=== PATIENT | male | born 1965 | race Caucasian/White ===

== ENCOUNTER → 2017-06-26 | Day surgery (SDC) | payer OTHER ==
[~2017-06-26] MED LIST: LIDOCAINE HCL 2% LOCAL INJ 5 ML SDV VIAL INJ ONE; MIDAZOLAM HCL 5MG/ML 2ML VIAL ONE; PROPOFOL IV EMULSION 10 MG/ML 50 ML VIAL ONE
--- NOTE | 2017-06-26 16:16 | Operative Report ---
DATE OF PROCEDURE: June 26, 2017 REFERRING PHYSICIAN: Dr. Maurisio Tafoya. PROCEDURES PERFORMED: Esophagogastroduodenoscopy with biopsies and dilatation and colonoscopy with polypectomy. INDICATIONS FOR EGD: Dysphagia, history of heartburn and indigestion. INDICATIONS FOR COLONOSCOPY: Colorectal cancer screening. MEDICATION: Patient was done under MAC. Please see anesthesiologist's note. PROCEDURE: With the patient in lateral decubitus position, a flexible fiberoptic Olympus gastroscope was introduced into the esophagus under direct visualization without any difficulty. Two inlet patches were noted in the cervical esophagus just below the upper esophageal sphincter and there were 2 nodules noted in the inlet patches and biopsies were obtained. The scope was then advanced with ease into the stomach. There was some patchy erythema noted in the distal esophagus. Also, there was an approximately 3 mm ulcer noted in the distal esophagus without active bleeding. There was a mild stricture noted at the GE junction that was dilated to size 52-Kittitian Galvan. The scope was then advanced with ease into the stomach. Mucosa overlying the antrum and the body revealed some patchy erythema and [id number] edema, and biopsies were obtained sent to stain for H. pylori. The pylorus was of normal contour and shape, was intubated with ease, and the scope was advanced all the way to the second portion of the duodenum. The scope was then withdrawn slowly. Mucosa overlying the proximal second portion and the duodenal bulb appeared to be within normal limits. The scope was then withdrawn back into the stomach and retroflexed. The mucosa overlying the fundus and cardia appeared to be within normal limits. The scope was then straightened out. The stomach was decompressed. The scope subsequently withdrawn. Patient tolerated the procedure well. IMPRESSION 1. Inlet patch. 2. Nodule in inlet patch biopsied. 3. Ulcer of distal esophagus without active bleeding. 4. Esophageal stricture at gastroesophageal junction, dilated to size 52-Kittitian Galvan. 5. Gastritis biopsied. Biopsies sent to stain for H. pylori. PLAN: Followup histology. Initiate Protonix 40 mg one p.o. q.a.m. a.c. The patient was then turned around. After adequate lubrication of the anal canal, flexible fiberoptic Olympus colonoscope was inserted into the rectum with ease and advanced all the way to the cecum. The scope was then withdrawn slowly. Mucosa overlying the cecum and ascending colon appeared to be within normal limits. One polyp was hot biopsied, one polyp was snared from the transverse colon. The descending sigmoid appeared to be within normal limits. One polyp was snared from the rectum. The scope was then retroflexed into the distal rectum and small internal hemorrhoids were noted, none of which was actively bleeding. The scope was then straightened out. The rectosigmoid area as well as the distal rectal area were decompressed. The scope was subsequently withdrawn. Patient tolerated the procedure well. IMPRESSION 1. Transverse colon polyps times 2, one snared and one hot biopsied. 2. Rectal polyp snared. 3. Internal hemorrhoids, none actively bleeding. PLAN: Followup histology. Initiate high-fiber, low-fat diet. Initiate high-fiber supplement. Patient will need a followup colonoscopy in 3 years. Job#: [id number] SAK cc:Dr. Maurisio Tafoya
== END | disposition home or self-care (01) ==
LOC: OR 07:32
PROVIDERS: ATTEND Internal Medicine Gastroenterology
DX: Z12.11 Encounter for screening for malignant neoplasm of colon (principal); D12.3 Benign neoplasm of transverse colon; K62.1 Rectal polyp; K29.70 Gastritis, unspecified, without bleeding; K22.2 Esophageal obstruction; K21.9 Gastro-esophageal reflux disease without esophagitis; K22.8 Other specified diseases of esophagus; K22.10 Ulcer of esophagus without bleeding; K64.8 Other hemorrhoids; R05 Cough; R06.83 Snoring; T78.40XA Allergy, unspecified, initial encounter; F41.9 Anxiety disorder, unspecified; X58.XXXA Exposure to other specified factors, initial encounter; Z01.810 Encounter for preprocedural cardiovascular examination; Z68.34 Body mass index [BMI] 34.0-34.9, adult
CPT/HCPCS: 43239; 43450; 45384; 45385; 93005; J2001; J2250